=== PATIENT | male | born 1960 | race Two or more races ===

== ENCOUNTER 2019-04-03 17:38 | Inpatient (IN) | payer OTHER ==
[~2019-04-03] VITALS: Ht 170.2 cm; Wt 88.9 kg
[2019-04-03 18:33] LABS: BASOPHILS % (AUTO) 0.2 % (0.0-2.0); HEMATOCRIT 35 % (39-51); HEMOGLOBIN 11.2 g/dL (13.5-17.5); LYMPHOCYTES # (AUTO) 1.6 /CMM (0.8-4.8); LYMPHOCYTES % (AUTO) 24.5 % (20.0-44.0); MEAN CORPUSCULAR HGB CONC 32 g/dl (31.0-36.0); MEAN CORPUSCULAR VOLUME 90 fL (80-96); MONOCYTES # (AUTO) 0.8 /CMM (0.1-1.30); MONOCYTES % (AUTO) 11.5 % (2.0-12.0); NEUTROPHILS # (AUTO) 3.8 /CMM (1.8-8.9); NEUTROPHILS % (AUTO) 57.8 % (43.0-81.0); PLATELET COUNT (AUTO) 174 /CMM (150-450); RED BLOOD CELL COUNT(AUTO) 3.86 MIL/uL (4.5-6.0); WHITE BLOOD COUNT (AUTO) 6.6 K/uL (4.3-11.0)
[2019-04-03 18:41] LABS: CALCIUM, SERUM 9.5 mg/dL (8.5-10.1); POTASSIUM 5.7 mmol/L (3.5-5.1)
[2019-04-03 18:48] LABS: CREATININE 13.6 mg/dL (0.6-1.3)
[2019-04-03 18:54] LABS: ALBUMIN 3.5 g/dL (3.4-5.0); BILIRUBIN,DIRECT 0.1 mg/dL (0.0-0.2); BILIRUBIN,TOTAL 0.5 mg/dL (0.2-1.0); TOTAL PROTEIN, SERUM 7.7 g/dL (6.4-8.2)
--- NOTE | 2019-04-03 19:30 | NUR ---
ASSUMED CARE FOR PT AT THIS TIME. PER NOTES, PT KRISTIE C/O GENERALIZED WEAKNESS. PT STATES HE MISSED DIALYSIS TODAY. DIALYSIS SCHEDULE FRIDAY, FRIDAY, FRIDAY, LAST REC'D DIALYSIS FRIDAY. PT ALSO C/O SOB. PT AAOX4. RESPIRATIONS EVEN AND UNLABORED. VITAL SIGNS STABLE. NO ACUTE DISTRESS NOTED AT THIS TIME. WILL CONTINUE TO MONITOR
[2019-04-03] MEDS ORDERED: PIPERACILLIN /TAZOBACTAM 3.375 G in IV D5W 50 ML IV ONE (20:00)
[2019-04-03] MEDS ORDERED: PIPERACILLIN /TAZOBACTAM 3.375 G VIAL IV ONE (20:31)
--- NOTE | 2019-04-03 20:33 | NUR ---
GAVE MOVESHEET TO ADMITING
[2019-04-03] MEDS ORDERED: PANT40TA4 PO (22:06)
[2019-04-03] MEDS ORDERED: ISOS30TA6 PO (22:06)
[2019-04-03] MEDS ORDERED: CLON1TAB12 PO (22:06)
[2019-04-03] MEDS ORDERED: MELA3CAP2 PO (22:06)
[2019-04-03] MEDS ORDERED: FOLI0.4T2 PO (22:06)
[2019-04-03] MEDS ORDERED: CINA30TA2 PO (22:06)
[2019-04-03] MEDS ORDERED: CARV25TA PO (22:06)
[2019-04-03] MEDS ORDERED: APIX2.5T PO (22:06)
[2019-04-03] MEDS ORDERED: VIT1TABL46 PO (22:06)
[2019-04-03] MEDS ORDERED: FERR325T23 PO (22:06)
[2019-04-03] MEDS ORDERED: BENA20TA9 PO (22:06)
[2019-04-03] MEDS ORDERED: BUSP15TA3 PO (22:06)
[2019-04-03] MEDS ORDERED: SEVE800T8 PO (22:06)
[2019-04-03] MEDS ORDERED: SIMV-46 PO (22:06)
[2019-04-03] MEDS ORDERED: CYAN-51 PO (22:06)
[2019-04-03] MEDS ORDERED: QUET100T PO (22:06)
[2019-04-03] MEDS ORDERED: AMLO10TA7 PO (22:06)
[2019-04-03] MEDS ORDERED: CHOL100040 PO (22:06)
--- NOTE | 2019-04-03 22:19 | NUR ---
CALLED [facility] PAGED COTTON TIER DR ARTIS
[2019-04-03] MEDS: SODIUM POLYSTYRENE SULFONATE 15 G/60 ML BOTTLE PO ONE (22:30)
--- NOTE | 2019-04-03 22:34 | NUR ---
GAVE REPORT TO ISAAC RICHMOND FOR TIFFANIE
[2019-04-03] MEDS ORDERED: ONDANSETRON HCL/PF 4 MG/2 ML VIAL ONE (22:58)
[2019-04-03] MEDS ORDERED: MORPHINE SULFATE INJ 4 MG/ML DISP.SYRIN ONE (22:59)
[2019-04-03] MEDS: ONDANSETRON HCL/PF 4 MG/2 ML VIAL IV ONE ×2 (23:18→23:20)
[2019-04-03] MEDS: MORPHINE SULFATE INJ 2 MG/ML DISP.SYRIN IV ONE (23:20)
[2019-04-03 23:25] VITALS: BP 106/66
--- NOTE | 2019-04-03 23:25 | NUR ---
MAT TESTER NOTES RECEIVED FROM ER THIS 58 YO MALE,ALERT,ORIENTED X3,WITH CHIEF COMPLAINTS OF GENERALIZED WEAKNESS AND SOB PAINTER ORDNANCE.BTREATHING REGULAR UPON ARRIVAL ON THE UNIT.REFUSED BODY ASSESSMENT.REFUSED TELE MONITOR.WITH RIGHT EXTERNAL JUGULAR SALINE LOCK.NON WORKING LEFT UPPER ARM AV SHUNT,RIGHT LOWER SHUNT FOR HD TREATMENT.PER PATIENT, HE MISSED HIS DIALYSIS TODAY.CLAIMED,HE CAME FROM [facility],TRIED TO VERIFY WITH THE FACILITY IF HE'S A RESIDENT THERE,THEY SAID HE'S NOT,SO MOST LIKELY HOMELESS.CASE MANAGEMENT/CRITICAL CARE EDUCATOR REFERRAL INITIATED.AMBULATE WITH ASSISTED DEVICE(WHEELCHAIR).CALL LIGHT IN REACH,NEEDS ANTICIPATED.
--- NOTE | 2019-04-03 23:30 | NUR ---
PT TRANSFERRED TO TELE 314-1 VIA RLIBERTY PER [employer]S PROT[employer]OL
[2019-04-04] MEDS ORDERED: CLONIDINE HCL 0.1 MG TABLET PO PRN
--- NOTE | 2019-04-04 01:36 | NUR ---
TOURING PRODUCTION MANAGER NOTES SPOKE TO ER NURSE NAME ALBERT TO VERIFY WHY KAYEXALATE WASNT GIVEN AND SHE SAID IT WAS DR ANTHONY ORDER AT 2230 AND PATIENT WAS TRANSFERRED TO THE UNIT AT 2325.WILL ADMINISTER.
--- NOTE | 2019-04-04 02:00 | NUR ---
APPLICATION ARCHITECT NOTES K LEVEL 5.7, OFFERED KAYEXALATE 60GMS PO,BUT REFUSED.EXPLAINED RISK AND BENEFITS BUT STILL REFUSED
[2019-04-04] MEDS ORDERED: SODIUM POLYSTYRENE SULFONATE 15 G/60 ML BOTTLE ONE ×3 (02:06→02:34)
[2019-04-04] MEDS: SODIUM POLYSTYRENE SULFONATE 15 G/60 ML BOTTLE PO ONE (02:17)
--- NOTE | 2019-04-04 04:30 | NUR ---
GRAVEL ROOFER NOTES C/O GENERALIZED PAIN,OFFERED CLONAZEPAM BUT REFUSED .HE WANTS SHOT FOR PAIN MANAGEMENT.DR ANTHONY MADE AWARE,AWAITING TO CALL BACK.
--- NOTE | 2019-04-04 05:00 | NUR ---
AREA LOSS PREVENTION MANAGER NOTES NOTED SLEEPING COMFORTABLY ON BED,KEPT WARM.
--- NOTE | 2019-04-04 05:44 | NUR ---
LINER ASSEMBLER NOTES REFUSED MORNING LAB DRAW
--- NOTE | 2019-04-04 06:50 | NUR ---
RECEPTION SPECIALIST NOTES STILL REFUSING TO HAVE TELE BOX ON,DENIES CHEST PAIN,SLEPT WITH INTERVALS,PAIN TOLERABLE AT THE MOMENT.DR ANTHONY CALLED ON PAGER,LEAVE MESSAGE,AWAITING TO CALL BACK.VERY NON COMPLIANT WITH CARE.WILL CONTINUE TO MONITOR STATUS AND BEHAVIOR.CALL LIGHT IN REACH,NEEDS ATTENDED.WILL ENDORSE TO DAY NURSE FOR TIFFANIE.
--- NOTE | 2019-04-04 07:42 | NUR ---
RN OPENING NOTES Patient received on room air, no sob noted, no s/s of pain at this time. Patient asleep on his bed at this time. a/o x3. R external jugular #[address] Bed at the lowest setting, call light within reach, side rails up x2.
[2019-04-04 08:00] VITALS: BP 117/80
[2019-04-04] MEDS ORDERED: PANTOPRAZOLE 40 MG TABLET.DR PO SCH (08:50)
[2019-04-04] MEDS ORDERED: APIXABAN 2.5 MG TABLET PO SCH (09:00)
[2019-04-04] MEDS ORDERED: FOLIC ACID 1 MG TABLET PO SCH (09:00)
[2019-04-04] MEDS ORDERED: ISOSORBIDE MONONITRATE (30MG) 30 MG TAB.SR.24H PO SCH (09:00)
[2019-04-04] MEDS ORDERED: FERROUS SULFATE (325 MG) 325 MG/TAB TABLET PO SCH (09:00)
[2019-04-04] MEDS ORDERED: CHOLECALCIFEROL 1,000 UNIT TABLET (VIT D3) PO SCH (09:00)
[2019-04-04] MEDS ORDERED: CYANOCOBALAMIN 500 MCG TABLET PO SCH (09:00)
[2019-04-04] MEDS ORDERED: SEVELAMER CARBONATE 800 MG TABLET PO SCH (09:00)
[2019-04-04] MEDS ORDERED: clonazePAM 1 MG TABLET PO PRN (09:00)
[2019-04-04] MEDS ORDERED: CINACALCET HCL 30 MG TABLET PO SCH (09:00)
[2019-04-04] MEDS ORDERED: COREG PO SCH (09:00)
[2019-04-04] MEDS ORDERED: busPIRone 5 MG TABLET PO SCH (09:00)
[2019-04-04] MEDS ORDERED: AMLODIPINE BESYLATE 10 MG TABLET PO SCH (09:00)
[2019-04-04] MEDS ORDERED: VIT B CMPLX 3/FA/VIT C/BIOTIN 1 TAB TABLET PO SCH (09:00)
[2019-04-04] MEDS ORDERED: MISCELLANEOUS MED 1 EA EA XX ONE (09:00)
--- NOTE | 2019-04-04 10:10 | NUR ---
RN NOTES patient asking for morphine for pain control. Dr. Colin aware of the patients request. patient stating he wants to go AMA at this time and is very verbally abusive.
[2019-04-04 10:21] VITALS: BP 117/80
[2019-04-04] MEDS ORDERED: *INSULIN REGULAR(HUMULIN R)HUM 100 UNIT/ML VIAL SQ PRN (11:30)
[2019-04-04] MEDS ORDERED: DEXTROSE 50%-WATER 50 ML DISP.SYRIN IV PRN (11:30)
[2019-04-04] MEDS ORDERED: INSULIN REGULAR, HUMAN 100 UNIT/ML 3 ML VIAL SQ PRN (11:30)
[2019-04-04] MEDS ORDERED: AMOX/CLAVULANATE 875 MG TABLET PO SCH (12:00)
[2019-04-04] MEDS ORDERED: ALBUTEROL HALF STRENGTH 1.25 MG/3 ML VIAL.NEB NEB PRN (12:00)
[2019-04-04] MEDS ORDERED: HYDROCODONE/APAP 5/325MG 1 EACH TABLET PO PRN (12:00)
[2019-04-04] MEDS ORDERED: ACETAMINOPHEN 325 MG TABLET PO PRN (12:00)
[2019-04-04] MEDS ORDERED: IPRATROPIUM NEB FS 0.5 MG/2.5 ML AMPUL.NEB NEB PRN (12:00)
[2019-04-04] MEDS ORDERED: BLOOD SUGAR DIAGNOSTIC 1 EACH STRIP VI SCH (12:00)
--- NOTE | 2019-04-04 12:03 | NUR ---
RN NOTES patient refusing blood sugar checks at this time
--- NOTE | 2019-04-04 12:20 | NUR ---
BASILIO WALSH NOTES Patient went AMA at this time. removed IV lines without bleeding noted. Patient did not sign paper. Patient went out with his wheelchair and belongings with him.
[2019-04-04] MEDS ORDERED: QUETIAPINE FUMARATE 100 MG TABLET PO SCH (18:00)
[2019-04-04] MEDS ORDERED: SIMVASTATIN 20 MG TABLET PO SCH (22:00)
--- NOTE | 2019-04-05 14:52 | NUR ---
Order Manager Consultation requested over the weekend by Dr. Collin Colin for d/c planning. SW unable to assess patient as pt. left AMA 04/04 and SW not available over the weekend.
== END 2019-04-04 12:20 | disposition left against medical advice (07) | DRG 139 ==
LOC: ER 17:42 → TELE 22:56 → MED 04-04 09:18
PROVIDERS: ADMIT Internal Medicine; ATTEND Internal Medicine
PROC: 5A1D70Z Performance of Urinary Filtration, Intermittent, Less than 6 Hours Per Day (ICD-10-PCS; principal; 2019-04-03)
DX: J15.9 Unspecified bacterial pneumonia (principal); I13.2 Hypertensive heart and chronic kidney disease with heart failure and with stage 5 chronic kidney disease, or end stage renal disease; E11.22 Type 2 diabetes mellitus with diabetic chronic kidney disease; N18.6 End stage renal disease; E87.5 Hyperkalemia; I48.91 Unspecified atrial fibrillation; Z59.0 Homelessness; J45.909 Unspecified asthma, uncomplicated; Z99.2 Dependence on renal dialysis; J20.9 Acute bronchitis, unspecified; E78.5 Hyperlipidemia, unspecified; Z95.0 Presence of cardiac pacemaker; Z91.19 Patient's noncompliance with other medical treatment and regimen; K21.9 Gastro-esophageal reflux disease without esophagitis; I50.33 Acute on chronic diastolic (congestive) heart failure
CPT/HCPCS: 36415; 71045-TC; 80048-TC; 80076-TC; 82962-TC; 83880; 85025-TC; 86706; 87040-TC; 87340; G0378; J1815; J2270; J2405; J2543; J7060